=== PATIENT | female | born 1985 | race Two or more races ===

== ENCOUNTER 2018-03-02 23:28 | Inpatient (IN) | payer OTHER ==
[2018-03-03] MEDS ORDERED: PRENATAL 19 TA1 EAC1 PO (02:25)
== END 2018-03-08 09:10 | DRG 833 ==
LOC: OBS/DEL 23:28 → OB/GYN 03-03 00:45 → LDR 03-03 00:45 → OB/GYN 03-03 08:30
PROVIDERS: ADMIT Obstetrics & Gynecology
PROC: 4A1HXCZ Monitoring of Products of Conception, Cardiac Rate, External Approach (ICD-10-PCS; 2018-03-03)
PROC: 3E0F7GC Introduction of Other Therapeutic Substance into Respiratory Tract, Via Natural or Artificial Opening (ICD-10-PCS; principal; 2018-03-04)
PROC: 4A033R1 Measurement of Arterial Saturation, Peripheral, Percutaneous Approach (ICD-10-PCS; 2018-03-04)
DX: O26.893 Other specified pregnancy related conditions, third trimester (principal); J10.1 Influenza due to other identified influenza virus with other respiratory manifestations; Z34.83 Encounter for supervision of other normal pregnancy, third trimester

== ENCOUNTER 2018-04-22 06:40 | Inpatient (IN) | payer OTHER ==
[~2018-04-22] VITALS: Ht 152.4 cm; Wt 86.2 kg
[~2018-04-22 06:40] MED LIST: PRENATAL 19 TA1 EAC1 PO
[2018-04-24] MEDS ORDERED: ACETAMINOPHEN500 M1 PO (10:57)
[2018-04-24] MEDS ORDERED: IBUPROFEN400 MG PO (10:57)
[2018-04-24] MEDS ORDERED: GAS RELIEF125 MG PO (10:57)
[2018-04-24] MEDS ORDERED: DOCUSATE SODIU100 MG PO (10:57)
[2018-04-24] MEDS ORDERED: PREPLUS CA-FE1 EACH PO (10:57)
== END 2018-04-24 11:14 | DRG 798 ==
LOC: LDR 06:40 → OB/GYN 06:40
PROVIDERS: ADMIT Obstetrics & Gynecology
PROC: 10E0XZZ Delivery of Products of Conception, External Approach (ICD-10-PCS; principal; 2018-04-22)
PROC: 4A1HXCZ Monitoring of Products of Conception, Cardiac Rate, External Approach (ICD-10-PCS; 2018-04-22)
PROC: 4A033R1 Measurement of Arterial Saturation, Peripheral, Percutaneous Approach (ICD-10-PCS; 2018-04-22)
PROC: 0UB70ZZ Excision of Bilateral Fallopian Tubes, Open Approach (ICD-10-PCS; 2018-04-23)
DX: O80 Encounter for full-term uncomplicated delivery (principal); Z37.0 Single live birth; Z30.2 Encounter for sterilization; Z3A.38 38 weeks gestation of pregnancy